=== PATIENT | female | born 1985 | race Two or more races ===

== ENCOUNTER 2021-04-18 14:53 | Emergency (ER) | payer MEDICAID, OTHER ==
[~2021-04-18] VITALS: Ht 160 cm; Wt 103.4 kg
[2021-04-18 14:54] VITALS: BP 90/52
[2021-04-18] MEDS ORDERED: cefTRIAXone SOD 1,000 MG VL IM ONE (17:45)
== END 2021-04-18 17:47 | disposition home or self-care (01) ==
LOC: ER 14:53
DX: U07.1 COVID-19 (principal); J20.9 Acute bronchitis, unspecified
CPT/HCPCS: 36415; 71045; 87426